=== PATIENT | female | born 1985 | race Caucasian/White ===

== ENCOUNTER 2020-01-16 22:10 | Emergency (ER) | payer OTHER, SELFPAY ==
--- NOTE | ~2020-01-16 | CT_ITS ---
EXAMINATION: CT soft tissue neck w con DATE: 01/16/2020 23:39 INDICATION: Left-sided neck pain and tonsillar swelling TECHNIQUE: Computed tomography (CT) of the neck was performed with 75 cc of Omnipaque 350 intravenous contrast. The dose-length product (DLP) was 289.88 mGy-cm. Automated exposure control and iterative reconstruction technique were employed. COMPARISON: None FINDINGS: There is asymmetric left tonsillar enlargement with a 10 mm x 9 mm area of central hypoatte nuation. There is some mass effect on the left lateral aspect of the oropharynx at this level. The pr evertebral soft tissues appear normal. There is mild reactive lymphadenopathy of the left neck. IMPRESSION: 1. Early left peritonsillar abscess with minimal mass effect on the airway. Reviewed, dictated and finalized at location A.
[2020-01-16 22:14] VITALS: BP 106/77; PULSE 90; RESP 16; TEMP 36.7; O2SAT 100
[2020-01-16 22:29] VITALS: O2SAT 99
--- NOTE | 2020-01-16 22:49 | ED.GENADULT ---
HPI - General Adult General Chief complaint: Upper Respiratory Infection Stated complaint: throat pain Time Seen by Provider: 01/16/20 22:17 History of Present Illness HPI narrative: Patient is a 34-year-old female who presents ER with sore throat. Ongoing for couple days. Seen at an urgent care yesterday, had a negative strep swab and then was given a Z-Tyree. Pain radiates to her left ear. Worse with turning her head as well. Has pain with swallowing but no actual difficulty swallowing or breathing. No known sick contacts. Sputum without fever/chills/sinus congestion. Patient reports after her first dose of azithromycin she had some nausea and vomiting. Related Data Home Medications Medication Instructions Recorded Confirmed azithromycin 01/16/20 norgestimate-ethinyl estradiol tablet 01/16/20 Allergies Allergy/AdvReac Type Severity Reaction Status Date / Time No Known Allergies Allergy Verified 01/16/20 22:17 Review of Systems Review of Systems: All systems reviewed & are unremarkable except as noted in HPI and below Constitutional: Constitutional: Denies chills, Denies fever(s) and Denies weakness ENT: Denies dysphagia, Denies nasal congestion and Reports sore throat Comments: Left ear pain Gastrointestinal: Gastrointestinal: Denies abdominal pain, Reports nausea and Reports vomiting PMFSH Past Medical History Medical History (Updated 01/17/20 @ 01:03 by Phil Baltazar MD) Healthy female adult Surgical History Surgical History (Updated 01/16/20 @ 22:50 by Phil Baltazar MD) No pertinent past surgical history Social History Social History (Updated 01/16/20 @ 22:51 by Phil Baltazar MD) Smoking status: Never smoker Gender identity (if verbalized by the patient): Female Exam Narrative: Exam Narrative: GENERAL: Well-appearing, well-nourished, and in no acute distress. HEAD: Normocephalic, atraumatic. ENT: Mucous membranes moist. Mild pharyngeal erythema over the tonsils bilaterally with slight swelling of the left tonsil without exudate. Uvula is midline and the tonsil does not come close to abutting it. TMs normal bilaterally. No pain with manipulation of the left ear. NECK: Supple. Discomfort with palpation of the left submandibular and paratracheal region without asymmetric swelling of the neck. Trachea midline. CHEST: Clear to auscultation. No respiratory distress. HEART: Regular rate and rhythm. Normal peripheral pulses. NEURO: Alert and oriented x3. Course Course Emergency Course: Attempted drainage of [employer] and was unsuccessful. Discussed with Dr. Sepulveda. Recommends Augmentin and IV Decadron. Vital Signs Vital signs: Vital Signs Temperature 98.1 F 01/16/20 22:14 Pulse Rate 90 01/16/20 22:14 Respiratory Rate 16 01/16/20 22:14 Blood Pressure 106/77 01/16/20 22:14 Pulse Oximetry 100 01/16/20 22:14 Temperature 98.3 F 01/17/20 01:16 Pulse Rate 98 01/17/20 01:16 Respiratory Rate 16 01/17/20 01:16 Blood Pressure 108/69 01/17/20 01:16 Pulse Oximetry 100 01/17/20 01:16 Procedures Abscess I/D oral: Date of Incision: 01/17/20 Time of Incision: 12:40 Side (if applicable): left Technique: needle aspiration Irrigation: No Packing used?: none I&D Results: Nothing Abcess I&D Additional Comments: Failed attempt at needle aspiration of left [employer]. Medical Decision Making Vital Signs Vital Signs: Vital Signs Temperature 98.1 F 01/16/20 22:14 Pulse Rate 90 01/16/20 22:14 Respiratory Rate 16 01/16/20 22:14 Blood Pressure 106/77 01/16/20 22:14 Pulse Oximetry 100 01/16/20 22:14 Temperature 98.3 F 01/17/20 01:16 Pulse Rate 98 01/17/20 01:16 Respiratory Rate 16 01/17/20 01:16 Blood Pressure 108/69 01/17/20 01:16 Pulse Oximetry 100 01/17/20 01:16 Lab Data Result diagrams: 01/16/20 23:27 Labs: Lab Results 01/16/20 Ran
[2020-01-16 23:28] LABS: Estimated Glomerular Filt Rate > 60
[2020-01-17 00:03] VITALS: BP 100/74; PULSE 90; RESP 18; O2SAT 100
[2020-01-17] MEDS: AMOXICILLIN/CLAVULANATE K 875-125 MG TAB 1 TABLET PO (01:00)
[2020-01-17 01:16] VITALS: BP 108/69; PULSE 98; RESP 16; TEMP 36.8; O2SAT 100
== END 2020-01-17 01:18 | disposition home or self-care (01) ==
PROVIDERS: Emergency Provider Emergency Medicine
DX: J36 Peritonsillar abscess (principal)
CPT/HCPCS: 36415; 41800; 42700; 70491; 81025; 87081; 87147; 87880; 96374; 99284; A9270; J1100; Q9967

== ENCOUNTER 2020-01-18 11:11 | Emergency (ER) | payer OTHER, SELFPAY ==
[2020-01-18] VITALS (18 sets, daily range): BP systolic 106–119; BP diastolic 70–83; PULSE 89; RESP 18; TEMP 36.7; O2SAT 97–100
[2020-01-18] MEDS: IBUPROFEN IV 800 MG/200 ML 800 MG/200 ML BAG 400 MG IVPB (12:05)
[2020-01-18] MEDS: SODIUM CHLORIDE 0.9% IV 1,000 ML 999 ML IV CONT (12:05)
--- NOTE | 2020-01-18 12:17 | ED.GENADULT ---
HPI - General Adult General Chief complaint: Unspecified Stated complaint: ST Time Seen by Provider: 01/18/20 11:18 Source: patient and old records reviewed Mode of arrival: ambulatory Limitations: no limitations History of Present Illness HPI narrative: Patient is a 34-year-old female who presents to emergency department for evaluation of continued sore throat was seen 2 days ago diagnosed with peritonsillar abscess had a CAT scan performed which showed early peritonsillar abscess was seen yesterday by ear nose and throat physician who attempted drainage with no drainage noted advised patient to continue medications and to return to him if symptoms worsen. Patient today noting moderate aching pain to the left side of the throat where she has had the redness and swelling. Patient denies vomiting diarrhea Related Data Home Medications Medication Instructions Recorded Confirmed azithromycin 01/16/20 norgestimate-ethinyl estradiol tablet 01/16/20 Allergies Allergy/AdvReac Type Severity Reaction Status Date / Time No Known Allergies Allergy Verified 01/17/20 09:26 Review of Systems Review of Systems: All systems reviewed & are unremarkable except as noted in HPI and below PMFSH Past Medical History Medical History Healthy female adult Surgical History Surgical History No pertinent past surgical history Social History Social History Smoking status: Never smoker Gender identity (if verbalized by the patient): Female Exam Narrative: Exam Narrative: GENERAL: Well-appearing, well-nourished, and in no acute distress. HEAD: Normocephalic, atraumatic. EYES: PERRLA and EOMI. ENT: Nares clear, no rhinorrhea or epistaxis. Mucous membranes moist. Oropharynx with slight left-sided erythema and swelling of the peritonsillar region slight deviation right side with minimal erythema and swelling bilateral TMs pearly monique nonbulging. NECK: Supple. No adenopathy or masses. No stridor CHEST: Clear to auscultation. No respiratory distress. No wheezes rales or rhonchi HEART: Regular rate and rhythm. No murmur heard. EXTREMITIES: Normal range of motion. No edema. SKIN: Warm, dry, no rash. NEURO: No focal deficits. Alert and oriented x3. PSYCH: Normal mood and affect. Course Consultations Consultation #1: Discussed case with ear nose and throat who would like the patient to follow-up in the next several days noting that he attempted to drain the abscess and notes that it is not an abscess and that this has been attempted to be drained twice with no purulence wants patient to continue the medications be prior to fighting with reasons to return and will follow in clinic Date: 01/18/20 Time: 13:32 Vital Signs Vital signs: Vital Signs Temperature 98.0 F 01/18/20 11:15 Pulse Rate 89 01/18/20 11:15 Respiratory Rate 18 01/18/20 11:15 Blood Pressure 119/79 01/18/20 11:15 Pulse Oximetry 99 01/18/20 11:15 Temperature 98.0 F 01/18/20 11:15 Pulse Rate 89 01/18/20 11:15 Respiratory Rate 18 01/18/20 11:15 Blood Pressure 111/75 01/18/20 11:46 Pulse Oximetry 100 01/18/20 12:00 Medical Decision Making [facility] Narrative Medical decision making narrative: Patient in the room at this time resting comfortably feeling much better after interventions aware of discussion with ENT green to follow-up with ear nose and throat physician as planned patient provided with reasons to return patient afebrile nontoxic-appearing no distress tolerating liquids without difficulty Vital Signs Vital Signs: Vital Signs Temperature 98.0 F 01/18/20 11:15 Pulse Rate 89 01/18/20 11:15 Respiratory Rate 18 01/18/20 11:15 Blood Pressure 119/79 01/18/20 11:15 Pulse Oximetry 99 01/18/20 11:15 Temperature 98.0 F 01/18/20 11:15 Pulse
[2020-01-18 12:23] LABS: Basophils Absolute Auto 0.1 K/mm3 (0.0-0.1); Basophils Percent Auto 0.4 % (0.2-1.2); Eosinophils Percent Auto 0.2 % (0-4.4); Hemoglobin 12.4 g/dL (12.0-15.0); Immature Granulocyte Absolute 0.08 K/mm3 (0.00-0.031); Immature Granulocyte Percent A 0.5 % (0-0.5); Lymphocytes Absolute Auto 1.51 K/mm3 (0.9-3.2); Lymphocytes Percent Auto 9.3 % (18.3-44.2); Mean Corpuscular HGB Conc 32.6 g/dl (32-36); Mean Corpuscular Hemoglobin 30.1 pg (26-34); Mean Corpuscular Volume 92.2 fl (80-100); Mean Platelet Volume 9.8 fl (7.4-10.4); Monocytes Absolute Auto 0.7 K/mm3 (0.1-0.6); Monocytes Percent Auto 4.2 % (2.6-8.5); Neutrophils Absolute Auto 13.8 K/mm3 (1.3-6.7); Neutrophils Percent Auto 85.4 % (45.5-73.1); Platelet Count Result 338 k/mm3 (150-375); Red Blood Count 4.12 M/mm3 (4.2-5.4); Red Cell Distribution Width 12.7 % (11.5-14.5); White Blood Count 16.2 K/mm3 (4.5-10.0)
[2020-01-18 12:37] LABS: Alanine Aminotransferase 65 U/L (4-35); Albumin Level 4.4 g/dL (3.5-5.1); Alkaline Phosphatase 99 U/L (38-126); Aspartate Amino Transferase 45 U/L (14-36); Bilirubin,Total 0.4 mg/dL (0.2-1.3); Blood Urea Nitrogen 17 mg/dL (7-17); Calcium 9.1 mg/dL (8.4-10.2); Carbon Dioxide 27 mmol/L (22-30); Chloride 102 mmol/L (98-107); Estimated CRCL calculation 72 ml/min; Estimated Glomerular Filt Rate > 60; Glucose 92 mg/dL (65-105); Potassium 3.7 mmol/L (3.4-5.0); Sodium 138 mmol/L (137-145)
[2020-01-18] MEDS: CLINDAMYCIN 900 MG/NS 50 ML 900 MG/50 ML PIGGYBACK 50 MG IVPB (13:18)
== END 2020-01-18 14:21 | disposition home or self-care (01) ==
PROVIDERS: Emergency Medicine Emergency Medical Services; Emergency Provider Emergency Medicine
DX: J02.9 Acute pharyngitis, unspecified (principal)
CPT/HCPCS: 36415; 80053; 85025; 96365; 96367; 96375; 99284; J1100; J1741; J7030

== ENCOUNTER 2021-01-11 09:30 | Emergency (ER) | payer OTHER, MEDICAID, SELFPAY ==
[2021-01-11 09:42] VITALS: BP 142/99; PULSE 106; RESP 20; TEMP 36.7; O2SAT 98
--- NOTE | 2021-01-11 10:25 | ED.GENADULT ---
HPI - General Adult General Chief complaint: Unspecified Stated complaint: possible mastitis Time Seen by Provider: 01/11/21 10:05 Source: patient Mode of arrival: ambulatory Limitations: no limitations History of Present Illness HPI narrative: Patient presents for evaluation of tenderness to the right breast. She states that her child hit her in the affected area with their chin. She has experienced pain in affected area since that time. She noted redness to affected area this morning so she came in evaluation. No fevers, chills, nausea, vomiting, drainage from the affected area. She is currently breast-feeding but has been pumping as of late. She had a on 12/24/20 and would like to continue with exclusively feedings with breast milk. Her delivery was at [facility]. No personal or family hx of breast cancer. She has never had a mammogram. Related Data Allergies Allergy/AdvReac Type Severity Reaction Status Date / Time No Known Allergies Allergy Verified 01/11/21 09:44 Review of Systems Review of Systems: Narrative: CONSTITUTIONAL: Denies fever, chills, or sweats. EYES: Denies visual changes, redness, or discharge. ENT: Denies rhinorrhea, congestion, sore throat, or otalgia. CARDIOVASCULAR: Denies chest pain, palpitations, or edema. RESPIRATORY: Denies cough or dyspnea. GASTROINTESTINAL: Denies abdominal pain, nausea, vomiting, or diarrhea. GENITOURINARY: Denies dysuria or hematuria. SKIN: Reports redness to right breast. Denies rash or itching. MUSCULOSKELETAL: Reports tenderness in right breast. Denies back pain, joint pain, or myalgia. NEUROLOGIC: Denies headache, numbness, dizziness, or weakness. PSYCHIATRIC: Denies anxiety or depression. [facility] Past Medical History Medical History (Updated 01/11/21 @ 11:06 by KRISTA Chen, EVELYN) Healthy female adult Surgical History Surgical History History of No pertinent past surgical history Family History Family History Mother No pertinent past medical history Social History Social History Smoking status: Never smoker Substance use: never Living arrangements: with family Gender identity (if verbalized by the patient): Female Sexual Orientation (if Verbalized by the Patient): Straight or Heterosexual Spiritual care concerns: No Exam Narrative: Exam Narrative: GENERAL: Well-appearing, well-nourished, and in no acute distress. HEAD: Normocephalic, atraumatic. EYES: PERRLA and EOMI. ENT: Nares clear, no rhinorrhea or epistaxis. Mucous membranes moist. Oropharynx without tonsillar hypertrophy exudate or other lesions. Bilateral TMs pearly monique nonbulging NECK: Supple. No adenopathy or masses. No carotid bruits or JVD CHEST: Tenderness noted over erythematous right breast mass. Clear to auscultation. No respiratory distress. No wheezes rales or rhonchi HEART: Regular rate and rhythm. No murmur heard. Normal peripheral pulses. ABDOMEN: Soft, nontender, nondistended, normal active bowel sounds. EXTREMITIES: Normal range of motion. No edema. SKIN: Approximately 6x4 cm of erythema to right breast between the 3 and 5 o 'clock position. There is associated induration without fluctuance. Warm, dry, no rash. NEURO: No focal deficits. Alert and oriented x3. PSYCH: Normal mood and affect. Course Course Emergency Course: This is a 35-year-old female who presented with pain, swelling, redness to the right breast. Exam is consistent with mastitis without abscess formation. Advised to apply warm compresses. Discussed risks versus benefits of specific antibiotic therapy. Will avoid Bactrim as patient's child did have elevated bilirubin. It sounds like this is improved. I did tell her it may be aguilar to formula feed to limit any risk of medication exposure
--- NOTE | 2021-01-11 11:12 | PC.NURSE ---
I called over to OB and asked if the campaign consultant was available to speak with the patient. The campaign consultant was not available so I provided the patient with their number so she could call them on Wednesday.
== END 2021-01-11 11:10 | disposition home or self-care (01) ==
PROVIDERS: Emergency Provider Nurse Practitioner
DX: N61.0 Mastitis without abscess (principal)
CPT/HCPCS: 99283